=== PATIENT | male | born 1985 | race African-American/Black ===

== ENCOUNTER 2023-01-30 12:24 | Emergency (ER) | payer OTHER ==
[~2023-01-30] VITALS: Ht 180.3 cm; Wt 86.2 kg
--- NOTE | 2023-01-30 13:00 | NUR ---
BIBS FOR MIGRAINE. A/O X3, TOLERATING WELL ON ROOM AIR.
[2023-01-30] MEDS ORDERED: IBUP-1957 PO (13:21)
[2023-01-30] MEDS ORDERED: IBUPROFEN 400 MG TABLET ONE (13:29)
[2023-01-30] MEDS ORDERED: IBUPROFEN 400 MG TABLET PO ONE (13:30)
--- NOTE | 2023-01-30 13:34 | NUR ---
Patient discharged to home in stable condition. Written and verbal after care instructions given. Patient verbalizes understanding of instruction.
[2023-01-30 13:35] VITALS: BP 138/68
== END 2023-01-30 13:35 | disposition home or self-care (01) ==
LOC: ER 12:38
DX: R51.9 Headache, unspecified (principal); Z79.899 Other long term (current) drug therapy; Z60.2 Problems related to living alone
CPT/HCPCS: J7030